=== PATIENT | female | born 1970 | race Caucasian/White ===

== ENCOUNTER 2016-11-17 19:54 | Emergency (ER) | payer OTHER ==
[2016-11-17 20:07] VITALS: BMI 23.4
[2016-11-17 20:23] VITALS: BP 124/76; PULSE 69; RESP 18; TEMP 98.3; O2SAT 97
--- NOTE | 2016-11-17 20:30 | C.PDOC ---
History Of Present Illness 46 year old patient presents to the ED complaining of sore throat and bilateral ear pain for the last 3 days. Patient also complains of cough. Patient denies taking any medications, fever, shortness of breath, nausea, vomiting, or headache. Time Seen by Provider: 11/17/16 20:07 Chief Complaint (Nursing): ENT Problem History Per: Patient History/Exam Limitations: None Onset/Duration Of Symptoms: Days (3) Current Symptoms Are (Timing): Still Present Quality (Ear): Pain W/Touch Quality (Mouth/Throat): Redness Symptoms Have Been: Continuous Severity: Mild Pain Scale Rating Of: 3 Past Medical History Reviewed: Historical Data, Nursing Documentation, Vital Signs Vital Signs: Last Vital Signs Temp 98.3 F 11/17/16 20:07 Pulse 69 11/17/16 20:07 Resp 18 11/17/16 20:07 BP 124/76 11/17/16 20:07 Pulse Ox 97 11/17/16 20:36 Family History: States: Unknown Family Hx - Social History Hx Alcohol Use: No Hx Substance Use: No - Immunization History Hx Tetanus Toxoid Vaccination: Yes Hx Influenza Vaccination: Yes Hx Pneumococcal Vaccination: Yes Review Of Systems Except As Marked, All Systems Reviewed And Found Negative. Constitutional: Negative for: Fever ENT: Positive for: Ear Pain, Throat Pain Respiratory: Positive for: Cough. Negative for: Shortness of Breath Gastrointestinal: Negative for: Nausea, Vomiting Neurological: Negative for: Headache Physical Exam - Physical Exam Appears: Non-toxic, No Acute Distress Skin: Warm, Dry Head: Atraumatic, Normacephalic Eye(s): bilateral: Normal Inspection, PERRL, EOMI Ear(s): Bilateral: Normal ((-)erythema) Nose: Normal Oral Mucosa: Moist Throat: Erythema, No Exudate, No Drooling, No Mass Neck: Normal ROM, Supple Chest: Symmetrical Cardiovascular: Rhythm Regular, No Murmur Respiratory: Normal Breath Sounds, No Rales, No Rhonchi, No Wheezing Back: Normal Inspection Neurological/Psych: Oriented x3, Normal Speech Gait: Steady ED Course And Treatment O2 Sat by Pulse Oximetry: 97 (RA) Pulse Ox Interpretation: Normal Medical Decision Making Medical Decision Making: Impression: 46 year old female with throat and ear pain Plan: * Zithromax * Reassess and disposition Progress: On re-examination, patient is resting comfortably in no acute distress. Patient feels comfortable going home and will be discharged. Patient given follow up instructions. Instructed to return to ER if symptoms worsen or new symptoms arise. Disposition Counseled Patient/Family Regarding: Need For Followup, Rx Given - Disposition Referrals: Clinic,Med Surg [Primary Care Provider] - Disposition: HOME/ ROUTINE Disposition Time: 20:40 Condition: STABLE Additional Instructions: Your prescription was sent to [facility] pharmacy take once daily starting tomorrow Take Tylenol or Motrin alternating every 4-6 hours for Fever 100.4F or higher. Rest and drink plenty of fluids. Follow up with your primary medical doctor or clinic in 1 week for further evaluation. 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 - Scribe Statement The provider has reviewed the documentation as recorded by the Scribe Rosana Moss All medical record entries made by the Scribe were at my direction and personally dictated by me. I have reviewed the chart and agree that the record accurately reflects my personal performance of the history, physical exam, medical decision making, and the department course for this patient. I have also personally directed, reviewed, and agree with the discharge instructions and disposition.
== END 2016-11-17 20:42 | disposition home or self-care (01) ==
LOC: C.ER 19:54 → SUPCPDRO 19:54 → C.ER 20:42
DX: J02.9 Acute pharyngitis, unspecified (principal)